=== PATIENT | male | born 1995 | race Caucasian/White ===

== ENCOUNTER 2018-09-21 12:54 | Emergency (ER) | payer MEDICAID, OTHER ==
[~2018-09-21] VITALS: Ht 180.3 cm; Wt 86.2 kg
--- NOTE | 2018-09-21 12:56 | ED General ---
General Stated Complaint: LT EAR FOREIGN OBJECT History of Present Illness Date Seen by Provider: Sep 21, 2018 Time Seen by Provider: 12:55 Initial Comments Patient has fishhook to L ear after he was going through his truck and is hanging in the visor of his truck and jumped up and it cut through the upper posterior ear. It is through and through. tdap utd. Allergies and Home Medications Patient Home Medication List Home Medication List Reviewed: Yes Review of Systems Review of Systems Constitutional: no symptoms reported Skin: other (foreign body) Physical Exam Vital Signs Vital Signs - First Documented 09/21/18 13:00 Temp 98.0 Pulse 84 Resp 18 B/P (MAP) 113/72 (86) Pulse Ox 98 O2 Delivery Room Air Capillary Refill : Height, Weight, BMI Height: '" Weight: lbs. oz. kg; BMI Method: General Appearance: No Apparent Distress, WD/WN Skin: Other (L upper posterior ear with fish hook that goes through and through. Large lure that is causing his ear to be pulled on. Is through the scapha, under the helix.) Procedures/Interventions I&D : Progress We cleansed the ear with chlorhexidine and I attempted to cut the fishhook proximal to the valorie with ring cutters and then wire cutters with no success as well as having to pull on the ear and I had assistance trying to hold the ear in place. Unfortunately he did not tolerate it so I then recommended that we anesthetize his ear using an auricular block. He stated that he did not want needles in his skull and I tried explaining to him that I am not putting a needle in skull rather just putting a needle slightly underneath the skin to anesthetize the nerves go to his ear. He again reiterates that he would absolutely never let me put a needle into his head as he was going into his skull and would cause permanent damage. Despite my best efforts at trying to reassure him that this is routine and will not cause permanent damage he would not allow me to anesthetize his ear. I told him the only other option would be to pull the fishhook out backwards which would not be recommended as it would cause further damage to the ear. It is the only other option I have available to me as I cannot get the proximal end of the fishhook cut. Patient refused this as he said he could do that at home and does not want done here. I advised against this and he verbalized understanding. Progress/Results/Core Measures Suspected Sepsis SIRS Temperature: Pulse: Respiratory Rate: Blood Pressure / Mean: Results/Orders Vital Signs/I&O 09/21/18 13:00 Temp 98.0 Pulse 84 Resp 18 B/P (MAP) 113/72 (86) Pulse Ox 98 O2 Delivery Room Air Capillary Refill : Progress Note : Progress Note As above patient is refusing to be anesthetized with further attempts to remove the fishhook as he cannot tolerate the procedure without being anesthetized. Patient said that he would try and attempt at home with his bulk cutters and his fiance has experienced a pulling out prior fishhooks in his lip. Again advised against this as it will make a cause further damage and further complications and he verbalized understanding accept the risks of further damage and infection to his ear. I told him he is otherwise welcome back here if he wants me to try again later after being anesthetized. Patient signed out AGAINST MEDICAL ADVICE. Departure Impression Primary Impression: Foreign body of skin of ear region Qualified Codes: S00.452A - Superficial foreign body of left ear, initial encounter Disposition: HOME, SELF-CARE Condition: Against Medical Advice PHYLLIS COOK DO Sep 21, 2018 12:56
[2018-09-21 13:00] VITALS: BP 113/72
--- NOTE | 2018-09-21 13:30 | NUR ---
Pt left AMA with refusal of further treatment options to remove fish hook valorie from left upper ear cartiledge. Pt has signed out refusal of Tx and AMA. Instructed to return to ED prn any further assistance needed or return to try again to assist to remove. Pt will have his , a NETWORK OPERATIONS MANAGER, to assist him when she gets off work. Pt states he must leave now to clean his truck out for its repossession.
[2018-09-21] MEDS ORDERED: CEPH500T PO (16:12)
--- OUTSIDE RECORDS SUMMARY | 2018-09-22 01:26 | XMS REPORT ---
Demographics Preferred Language Unknown Marital Status Unknown Confucianism Affiliation Unknown Race Unknown Ethnic Group Unknown Author Author [facility] Organization [facility] Address Unknown Phone Unavailable Allergies No Known Allergy Information Encounters Program Name Primary Diagnosis Admission Date/Time Discharge Date/Time Fortis Documents FriDec 06 00:00:00 EDT 2005Oct 21 23:59:00 EDT 2016 Immunizations No Known Immunizations Lab Results No Known Laboratory Results Medical Equipment No Known Medical Equipment Medications No Known Medication Information Treatment Plan No Treatment Plan Information Problems No Known Problems Procedures No Known Procedures Social History Social History Observation Description Date Sex Male Kia Jan 13 08:00:00 EDT 1996 Vital Signs No Known Vitals
--- OUTSIDE RECORDS SUMMARY | 2018-09-22 01:26 | XMS REPORT | Continuity of Care Document ---
Author Organization Unknown Address Unknown Allergies Active Description Code Type Severity Reaction Onset Reported/Identified Relationship to Patient Clinical Status Yes NO NAME AVAILABLE 52698 DRUG N/A N/A Medications There is no data. Problems There is no data. Procedures There is no data. Results Radiology Report from NAKUL on 06/30/2012 17:04:00 DIAGNOSTIC IMAGING REPORT [facility] - [address], [place] [address] PHONE #: [phone] FAX #: [phone] Name: ROMERO GUTHRIE Loc: [facility]RO Radiology No: : 1995 Age: 17 Sex: M Status: REG REF Unit No: [id number] Phys: Remy Post MD Acct: [id number] Reason For Exam: TRAUMA.PAIN RIGHT HAND Exam Date: 06/30/2012 EXAMS: CPT CODE: [id number] HAND RIGHT 1-2 VIEWS [id number] TIME OF STUDY: 06/30/2012 3:09 PM REASON FOR EXAM: Trauma, right hand pain COMPARISON: None FINDINGS: 2 views of the right hand were obtained. There is no evidence of acute fracture, dislocation, or other acute bony abnormality. There is no significant soft tissue swelling or large joint effusion. No abnormal soft tissue calcifications are present. No subcutaneous emphysema is identified. No unexpected radiopaque foreign bodies are present. IMPRESSION: 1. No acute fracture or dislocation. I have personally reviewed these images and approved or corrected the resident physician's interpretation. at 7913 RESIDENT: ANTOLIN RAY DO Reported and signed by: REMY HORVATH MD CC: Remy Casiano MD Technologist: TANVI DIOP Transcribed Date/Time: 06/30/2012 (2658)Addiction Social Worker: [email or web address] Printed Date/Time: 06/30/2012 (5501) BATCH NO: N/A PAGE 1 Signed Report Encounters ACCT No. Visit Date/Time Discharge Status Pt. Type Provider Facility Loc./Unit Complaint [id number] 01/02/2017 13:48:00 [facility] Unknown [id number] 04/16/2018 16:40:00 04/16/2018 23:59:59 [facility] [id number] 06/30/2012 17:04:00 06/30/2012 23:59:59 CLS Outpatient
== END 2018-09-21 13:30 | disposition home or self-care (01) ==
LOC: ER FS 12:56
DX: S00.452A Superficial foreign body of left ear, initial encounter (principal); W45.8XXA Other foreign body or object entering through skin, initial encounter; Y93.39 Activity, other involving climbing, rappelling and jumping off
CPT/HCPCS: 99282

== ENCOUNTER 2018-09-21 15:15 | Emergency (ER) | payer MEDICAID ==
[~2018-09-21] VITALS: Ht 180.3 cm; Wt 88.5 kg
[2018-09-21] MEDS ORDERED: LIDOCAINE 1% INJ 20 ML 20 ML VIAL INJ ONE (15:45)
[2018-09-21] MEDS ORDERED: CEPH500T PO (16:12)
--- NOTE | 2018-09-21 16:12 | ED Integumentary General ---
General Chief Complaint: Foreign Body Stated Complaint: FISHING LURE IN EAR Nursing Triage Note: PATIENT STATES THAT HE GOT A FISHING LURE CAUGHT IN HIS EAR WHILE CLEANING OUT HIS TRUCK. History of Present Illness Date Seen by Provider: Sep 21, 2018 Time Seen by Provider: 15:20 Initial Comments 23-year-old male presents with a fishing lure in his left ear, auricle. He had a tetanus vaccine 1 year ago. The lure was in his truck interior and he was cleaning the truck. He was evaluated at [facility] and told they would have to excise part of his ear, so he left and came here. Timing/Duration: just prior to arrival Location: face (left ear) Possible Cause: no cause identified Associated Symptoms: denies symptoms Allergies and Home Medications Allergies Coded Allergies: No Known Drug Allergies (Unverified , 09/21/18) Home Medications Cephalexin 500 Mg Tablet, 500 MG PO TID Prescribed by: JACOB DAN on 09/21/18 1612 Patient Home Medication List Home Medication List Reviewed: Yes Review of Systems Review of Systems Constitutional: no symptoms reported, see HPI Skin: see HPI, other (foreign body, left ear.) Past Holxdgz-Mghukt-Ryjzae Hx Past Med/Social Hx: Reviewed Nursing Past Med/Soc Hx Patient Social History Alcohol Use: Occasionally Uses Recreational Drug Use: No Smoking Status: Current Everyday Smoker Type Used: Cigarettes 2nd Hand Smoke Exposure: No Recent Foreign Travel: No Contact w/Someone Who Travel: No Recent Infectious Disease Expo: No Recent Hopitalizations: No Immunizations Up To Date Tetanus Booster (TDap): Less than 5yrs Seasonal Allergies Seasonal Allergies: No Past Medical History Surgeries: Yes (Strabismus surgery) Eye Surgery Respiratory: No Cardiac: No Neurological: No Genitourinary: No Gastrointestinal: No Musculoskeletal: No Endocrine: No HEENT: No Cancer: No Psychosocial: Yes Bipolar Blood Disorders: No Physical Exam Vital Signs Vital Signs - First Documented 09/21/18 15:18 Temp 98.2 Pulse 85 Resp 20 B/P (MAP) 118/73 (88) Pulse Ox 98 Capillary Refill : Less Than 3 Seconds General Appearance: WD/WN, no apparent distress HEENT: PERRL/EOMI, normal ENT inspection, other (hook noted in the left auricle, no active bleeding.) Neck: non-tender, full range of motion, supple, normal inspection Cardiovascular: normal peripheral pulses, regular rate, rhythm Respiratory: chest non-tender, lungs clear, normal breath sounds Neurologic/Psychiatric: no motor/sensory deficits, alert, normal mood/affect, oriented x 3 Skin: normal color, warm/dry Procedures/Interventions I&D : I & D Procedure: betadine prep Progress skin prepped with betadine, 1.5 ml of 1% lidocaine for local anesthesia. Hook advanced through skin, then cut past the valorie and hook easily withdrawn from ear. The wound was irrigated with 100 ML's of sterile saline. Triple antibiotic ointment and Band-Aid applied. Patient tolerated procedure well. Progress/Results/Core Measures Results/Orders My Orders Orders - JACOB DAN Lidocaine 1% Inj 20 Ml (Xylocaine 1% Inj (09/21/18 15:45) Medications Given in ED Current Medications Medications Dose Ordered Sig/Aurora Route Start Time Stop Time Status Last Admin Dose Admin Lidocaine HCl 20 ml ONCE ONCE INJ 09/21/18 15:45 09/21/18 15:46 DC 09/21/18 16:00 20 ML Vital Signs/I&O 09/21/18 09/21/18 15:18 16:16 Temp 98.2 98.2 Pulse 85 85 Resp 20 20 B/P (MAP) 118/73 (88) 118/73 (88) Pulse Ox 98 98 Blood Pressure Mean: 88 Departure Impression Primary Impression: Fishing hook foreign body Qualified Codes: W45.8XXA - Other foreign body or object entering through skin, initial encounter Disposition: 01 HOME, SELF-CARE Condition: Improved Departure-Patient Inst. Decision time for Depature: 16:10 Referrals: TOMAS JAMES MD (PCP/Family) Primary Care Physician Patient Instructions: Foreign Body in Skin (DC) Add. Discharge Instructions: Clean left ear with peroxide 3 times a day and apply triple antibiotic ointment. Take antibiotic as prescribed. You may use Tylenol 650 mg alternating with ibuprofen 600 mg every 4 hours for pain. Follow-up with your primary care provider if symptoms worsen. Return to emergency department for increased pain, swelling, redness, fever greater than 101 not relieved by Tylenol and ibuprofen or new concerns. All discharge instructions reviewed with patient and/or family. Voiced understanding. Scripts Cephalexin (Cephalexin) 500 Mg Tablet 500 MG PO TID, #15 TAB 0 Refills Prov: JACOB DAN 09/21/18 JACOB DAN Sep 21, 2018 16:12
[2018-09-21 16:16] VITALS: BP 118/73
--- OUTSIDE RECORDS SUMMARY | 2018-09-22 02:00 | XMS REPORT | Continuity of Care Document ---
Author Organization Unknown Address Unknown Allergies Active Description Code Type Severity Reaction Onset Reported/Identified Relationship to Patient Clinical Status Yes NO NAME AVAILABLE 52131 DRUG N/A N/A Medications There is no data. Problems There is no data. Procedures There is no data. Results Radiology Report from NAKUL on 06/30/2012 17:04:00 DIAGNOSTIC IMAGING REPORT [facility] - [address], [place] [address] PHONE #: [phone] FAX #: [phone] Name: ROMERO GUTHRIE Loc: PEDRO Radiology No: : 1995 Age: 17 Sex: M Status: REG REF Unit No: [id number] Phys: Remy Post MD Acct: [id number] Reason For Exam: TRAUMA.PAIN RIGHT HAND Exam Date: 06/30/2012 EXAMS: CPT CODE: [id number] HAND RIGHT 1-2 VIEWS [id number] TIME OF STUDY: 06/30/2012 3:09 PM REASON [...] or corrected the resident physician's interpretation. at 5802 RESIDENT: ANTOLIN RAY DO Reported and signed by: REMY HORVATH MD CC: Remy Casiano MD Technologist: TANVI DIOP Transcribed Date/Time: 06/30/2012 (3448)Crystal Finisher: PZARCADM Printed Date/Time: 06/30/2012 (1604) BATCH NO: N/A PAGE 1 Signed Report Encounters ACCT No. Visit Date/Time Discharge Status Pt. Type Provider Facility Loc./Unit Complaint [id number] 01/02/2017 13:48:00 ACT Unknown [id number] 04/16/2018 16:40:00 04/16/2018 23:59:59 [facility] [id number] 06/30/2012 17:04:00 06/30/2012 23:59:59 CLS Outpatient
== END 2018-09-21 16:17 | disposition home or self-care (01) ==
LOC: EDUNIT# 15:15 → ER 15:16
DX: S00.452A Superficial foreign body of left ear, initial encounter (principal); F31.9 Bipolar disorder, unspecified; F17.210 Nicotine dependence, cigarettes, uncomplicated; W45.8XXA Other foreign body or object entering through skin, initial encounter
CPT/HCPCS: 99282

== ENCOUNTER 2018-11-24 21:12 | Emergency (ER) | payer SELFPAY ==
[~2018-11-24] VITALS: Ht 180.3 cm; Wt 81.6 kg
[~2018-11-24 21:12] MED LIST: CEPH500T PO
--- NOTE | 2018-11-24 22:38 | ED Cough/URI ---
General Chief Complaint: Cough/Cold/Flu Symptoms Stated Complaint: TROAT PAIN, HEAD PRESSURE, CONGESTED Sepsis Screen: No Definite Risk Source: patient History of Present Illness Date Seen by Provider: Nov 24, 2018 Time Seen by Provider: 22:38 Initial Comments 23-year-old male presenting with complaints of a scratchy throat, congestion and sinus pressure, possible bronchitis. He is a smoker and does have seasonal allergies. 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 He also has a child that is sick with bronchitis and wuzmye-xm-[id number] that is sick with bronchitis. He was concerned that his coughing might get worse and he is very sick with bronchitis and can't work it will affect his employment. He denies any fever or chills. He does have some muscle pain in his back that feels that it is from kitchen 80 pound Carp this weekend and just made worse from coughing. He is not bringing anything up when he coughs Allergies and Home Medications Allergies Coded Allergies: No Known Drug Allergies (Unverified , 09/21/18) Home Medications Azithromycin 250 Mg Tablet, 250 MG PO UD TAKE 2 TABLETS ON DAY ONE THEN TAKE 1 TABLET DAILY FOR FOUR MORE DAYS Prescribed by: KELECHI KOWALSKI on 11/24/18 2303 Cephalexin 500 Mg Tablet, 500 MG PO TID Prescribed by: JACOB DAN on 09/21/18 1612 Patient Home Medication List Home Medication List Reviewed: Yes Review of Systems Review of Systems Constitutional: chills; No fever EENTM: hoarseness, nose congestion, throat pain; No ear discharge, No ear pain, No epistaxis Respiratory: cough; No hemoptysis; phlegm Cardiovascular: chest pain (from coughing) Gastrointestinal: no symptoms reported Genitourinary: no symptoms reported Musculoskeletal: back pain (since catching an 80 pound carp this weekend but worse with coughing) Skin: no symptoms reported Psychiatric/Neurological: Anxiety Past Yyvgsbs-Jthuti-Ofgfhi Hx Patient Social History Alcohol Use: Denies Use Recreational Drug Use: No Smoking Status: Current Everyday Smoker Type Used: Cigarettes 2nd Hand Smoke Exposure: No Recent Foreign Travel: No Contact w/Someone Who Travel: No Recent Infectious Disease Expo: No Recent Hopitalizations: No Physical Abuse: No Sexual Abuse: No Mistreated: No Immunizations Up To Date Tetanus Booster (TDap): Less than 5yrs Seasonal Allergies Seasonal Allergies: No Past Medical History Surgeries: Yes (Strabismus surgery) Eye Surgery Respiratory: No Cardiac: No Neurological: No Genitourinary: No Gastrointestinal: No Musculoskeletal: No Endocrine: No HEENT: No Cancer: No Psychosocial: Yes Bipolar Blood Disorders: No Physical Exam Vital Signs - First Documented 11/24/18 21:32 Temp 97.6 Pulse 86 Resp 18 B/P (MAP) 134/63 (86) Pulse Ox 94 O2 Delivery Room Air Capillary Refill : Less Than 3 Seconds Height: 5'11.00" Weight: 180lbs. 0oz. 81.056298wk; BMI Method:Stated General Appearance: WD/WN, no apparent distress HEENT: PERRL/EOMI, normal ENT inspection, TMs normal, pharynx normal, pharyn geal erythema; No tonsillar exudate; other (TMs are clear bilaterally but he has some clear effusion present bilaterally consistent with possible allergic rhinitis) Neck: non-tender, full range of motion, supple, normal inspection Respiratory: lungs clear, normal breath sounds, no respiratory distress, no accessory muscle use, other (tender to palpation on left lateral ribs) Cardiovascular: normal peripheral pulses, regular rate, rhythm Gastrointestinal: normal bowel sounds, non tender, soft, no pulsatile mass Extremities: normal range of motion, non-tender, normal inspection, normal capillary refill Neurologic/Psychiatric: alert, normal mood/affect, oriented x 3 Skin: normal color, warm/dry Progress/Results/Core Measures Suspected Sepsis Recent Fever Within 48 Hours: No Infection Criteria Present: None New/Unexplained Altered Menta: No Sepsis Screen: No Definite Risk SIRS Temperature:97.6 Pulse: 86 Respiratory Rate: 18 Blood Pressure 134 /63 Mean: 86 Results/Orders Vital Signs/I&O 11/24/18 11/24/18 21:32 23:10 Temp 97.6 Pulse 86 70 Resp 18 18 B/P (MAP) 134/63 (86) 129/54 (79) Pulse Ox 94 97 O2 Delivery Room Air Room Air Capillary Refill : Less Than 3 Seconds Blood Pressure Mean: 86 Progress Note : Progress Note With his oxygen saturation doing well and he does not have a fever here in the ED will treat for possible atypical infection since he is a smoker. will p rescribe z pack but if he improves with just mucinex and claritin alone he would not have to fill the z pack. However if he worsens, runs fever over 101 F, or has increased sputum production he could start the z pack without having to come be seen again. Encouraged to stop smoking as well Departure Impression Primary Impression: Allergic bronchitis with acute exacerbation Additional Impression: Tobacco abuse Disposition: 01 HOME, SELF-CARE Condition: Stable Departure-Patient Inst. Decision time for Depature: 23:00 Referrals: TOMAS JAMES MD (PCP/Family) Primary Care Physician Patient Instructions: Seasonal Allergies (DC), Acute Bronchitis, Adult (DC), Quitting Smoking Add. Discharge Instructions: Stay well hydrated and get plenty of rest Follow up with clinic if having continued problems or more concerns Take Mucinex over the counter to help loosen up cough and congestion Take Claritin or Loratidine over the counter to help with your seasonal allergies If you have worsening symptoms or coughing up more congestion you could start taking the Z-pack (Azithromycin) to treat for atypical lung infection since you are a smoker. Quitting smoking would help with your breathing and coughing All discharge instructions reviewed with patient and/or family. Voiced understanding. Scripts Azithromycin (Azithromycin) 250 Mg Tablet 250 MG PO UD for 5 Days, #6 TAB 0 Refills TAKE 2 TABLETS ON DAY ONE THEN TAKE 1 TABLET DAILY FOR FOUR MORE DAYS Prov: KELECHI KOWALSKI MD 11/24/18 KELECHI KOWALSKI MD Nov 24, 2018 22:38
[2018-11-24] MEDS ORDERED: AZIT250T12 PO (23:03)
[2018-11-24 23:10] VITALS: BP 129/54
== END 2018-11-24 23:11 | disposition home or self-care (01) ==
LOC: EDUNIT# 21:12 → ER FS 21:13
DX: J45.901 Unspecified asthma with (acute) exacerbation (principal); F31.9 Bipolar disorder, unspecified; F17.210 Nicotine dependence, cigarettes, uncomplicated
CPT/HCPCS: 99282

== ENCOUNTER 2019-01-14 19:30 | Emergency (ER) | payer MEDICAID, OTHER ==
[~2019-01-14] VITALS: Ht 180 cm; Wt 80.4 kg
[~2019-01-14 19:30] MED LIST changes: +AZIT250T12 PO
[2019-01-14 20:39] VITALS: BP 130/73
--- NOTE | 2019-01-14 20:41 | ED Upper Extremity ---
General Chief Complaint: Upper Extremity Stated Complaint: LT HAND INJ Nursing Triage Note: PT STATES HE WAS WORKING ON HIS MOWER AND THE BLADE HIT HIS LEFT HAND. PT COMPLAINING OF LEFT 4TH FINGER PAIN Nursing Sepsis Screen: No Definite Risk Source: patient Exam Limitations: no limitations History of Present Illness Date Seen by Provider: Jan 14, 2019 Time Seen by Provider: 20:00 Initial Comments Patient is a right-handed male presents with injury to distal left index finger. Patient smashed his left index finger under a lawnmower earlier today while at work. On exam, there is no deformity, buttock contusion of the distal fingertip and subungual hematoma involving two thirds of the nail are present. Patient has full range of motion. No other injury or complaint. Patient is right-handed. Onset: just prior to arrival Pain/Injury Location: left 4th finger Method of Injury: direct blow Allergies and Home Medications Allergies Coded Allergies: No Known Drug Allergies (Unverified , 09/21/18) Home Medications Azithromycin 250 Mg Tablet, 250 MG PO UD TAKE 2 TABLETS ON DAY ONE THEN TAKE 1 TABLET DAILY FOR FOUR MORE DAYS Prescribed by: KELECHI KOWALSKI on 11/24/18 2303 Cephalexin 500 Mg Tablet, 500 MG PO TID Prescribed by: JACOB DAN on 09/21/18 1612 Patient Home Medication List Home Medication List Reviewed: Yes Review of Systems Constitutional: no symptoms reported EENTM: no symptoms reported Respiratory: no symptoms reported Cardiovascular: no symptoms reported Genitourinary: no symptoms reported Musculoskeletal: other Past Tjjeewn-Mtvqhl-Eovhiq Hx Past Med/Social Hx: Reviewed Nursing Past Med/Soc Hx Patient Social History Alcohol Use: Denies Use Recreational Drug Use: No Type Used: Cigarettes 2nd Hand Smoke Exposure: No Recent Foreign Travel: No Contact w/Someone Who Travel: No Recent Infectious Disease Expo: No Recent Hopitalizations: No Physical Abuse: No Sexual Abuse: No Mistreated: No Immunizations Up To Date Tetanus Booster (TDap): Less than 5yrs Seasonal Allergies Seasonal Allergies: No Past Medical History Surgeries: Yes (Strabismus surgery) Eye Surgery Respiratory: No Cardiac: No Neurological: No Genitourinary: No Gastrointestinal: No Musculoskeletal: No Endocrine: No HEENT: No Cancer: No Psychosocial: Yes Bipolar Blood Disorders: No Physical Exam Vital Signs Vital Signs - First Documented 01/14/19 19:45 Temp 36.4 Pulse 87 Resp 16 B/P (MAP) 130/73 (92) Pulse Ox 99 O2 Delivery Room Air Capillary Refill : Less Than 3 Seconds Height, Weight, BMI Height: 5'11.00" Weight: 180lbs. 0oz. 81.901318kb; 24.00 BMI Method:Stated General Appearance: mild distress Hand: Left, nail injury, soft tissue tenderness (small hematoma to distal left index finger with associated subungual UA, involving two thirds of nail surface. Nail is intact. No joint injury, deformity. Range of motion intact.) Progress/Results/Core Measures Results/Orders My Orders Orders - RACHEL BHATIA DO Finger(S) (01/14/19 20:18) Vital Signs/I&O 01/14/19 19:45 Temp 36.4 Pulse 87 Resp 16 B/P (MAP) 130/73 (92) Pulse Ox 99 O2 Delivery Room Air Blood Pressure Mean: 92 Departure Communication (Admissions) Finger x-ray reviewed. No obvious displaced fracture. Patient offered trephinati on of nail in the emergency department which she declined. Recommendations are supportive care with PCP follow-up as needed. Impression Primary Impression: Subungual hematoma of finger of left hand Disposition: 01 HOME, SELF-CARE Condition: Improved Departure-Patient Inst. Add. Discharge Instructions: You were evaluated in the emergency department for an injury to left index finger. X-ray was performed does not show evidence of fracture. There is a contusion to the tip of the index finger with hematoma of the nail bed. Take ibuprofen for pain and follow-up with your PCP for further evaluation and treatment if you change your mind regarding treatment of nail bed injury. All discharge instructions reviewed with patient and/or family. Voiced understanding. RACHEL BHATIA DO Jan 14, 2019 20:41
--- NOTE | 2019-01-14 20:43 | Diagnostic Imaging Report ---
Clinical indication: Patient states he was working on his mower and the blade hit his left hand. Patient complains of left 4th finger pain. Exam: X-ray of the left 4th finger, 3 views. Comparison: None. Findings and impression: 1: There is mild soft tissue swelling adjacent to the 4th distal phalanx. There is no subcutaneous gas or radiodense foreign object. 2: There is no fracture or dislocation. The remainder of the left hand is unremarkable. Dictated by: Dictated on workstation # [id number]
== END 2019-01-14 20:39 | disposition home or self-care (01) ==
LOC: EDUNIT# 19:30 → ER FS 19:31
DX: S60.022A Contusion of left index finger without damage to nail, initial encounter (principal); F31.9 Bipolar disorder, unspecified; W28.XXXA Contact with powered lawn mower, initial encounter; Y92.59 Other trade areas as the place of occurrence of the external cause
CPT/HCPCS: 73140

== ENCOUNTER 2019-01-15 11:06 | Emergency (ER) | payer MEDICAID, OTHER ==
[~2019-01-15] VITALS: Ht 180 cm; Wt 80.8 kg
[2019-01-15 11:44] VITALS: BP 135/76
--- NOTE | 2019-01-15 11:46 | ED Upper Extremity ---
General Chief Complaint: Upper Extremity Stated Complaint: LT FINGER PAIN Source: patient Exam Limitations: no limitations History of Present Illness Date Seen by Provider: Jan 15, 2019 Time Seen by Provider: 11:30 Initial Comments Patient is a 24-year-old right-handed male who was evaluated emergency department last night and diagnosed with a subungual hematoma of his left index finger. Patient declined trephination procedure last evening but has since reconsidered and is requesting treatment for this condition. No other symptoms or complaints Onset: just prior to arrival Pain/Injury Location: left 2nd finger Method of Injury: direct blow Allergies and Home Medications Allergies Coded Allergies: No Known Drug Allergies (Unverified , 09/21/18) Home Medications Azithromycin 250 Mg Tablet, 250 MG PO UD TAKE 2 TABLETS ON DAY ONE THEN TAKE 1 TABLET DAILY FOR FOUR MORE DAYS Prescribed by: KELECHI KOWALSKI on 11/24/182302 Cephalexin 500 Mg Tablet, 500 MG PO TID Prescribed by: JACOB DAN on 09/21/18 1612 Patient Home Medication List Home Medication List Reviewed: Yes Review of Systems Constitutional: no symptoms reported Past Lffspqb-Jiutdx-Vrbzlf Hx Past Med/Social Hx: Reviewed Nursing Past Med/Soc Hx Patient Social History Type Used: Cigarettes 2nd Hand Smoke Exposure: No Recent Foreign Travel: No Recent Hopitalizations: No Immunizations Up To Date Tetanus Booster (TDap): Less than 5yrs Seasonal Allergies Seasonal Allergies: No Past Medical History Surgeries: Yes (Strabismus surgery) Eye Surgery Respiratory: No Cardiac: No Neurological: No Genitourinary: No Gastrointestinal: No Musculoskeletal: No Endocrine: No HEENT: No Cancer: No Psychosocial: Yes Bipolar Blood Disorders: No Physical Exam Vital Signs Capillary Refill : Height, Weight, BMI Height: 5'11.00" Weight: 180lbs. 0oz. 81.322759hx; 24.00 BMI Method:Stated General Appearance: no apparent distress Hand: Left (subungual hematoma of left index finger.) Procedures/Interventions Nail Trepanation : Method of Drainage: nail cauterized Sterile Dressing Applied: Yes Finger Splint: No Progress To holes were made with hand-held battery powered cautery device Patient tolerated the procedure well. Departure Communication (Admissions) Nail trephinated with release of symptoms. Impression Primary Impression: Subungual hematoma of finger of left hand Disposition: HOME, SELF-CARE Condition: Improved Departure-Patient Inst. Referrals: TOMAS JAMES MD (PCP) Primary Care Physician Add. Discharge Instructions: Keep wound clean and covered. Return to the ED if signs of infection. All discharge instructions reviewed with patient and/or family. Voiced understanding. RACHEL BHATIA DO Jan 15, 2019 11:46
== END 2019-01-15 11:44 | disposition home or self-care (01) ==
LOC: EDUNIT# 11:06 → ER FS 11:07
DX: S60.022A Contusion of left index finger without damage to nail, initial encounter (principal); F31.9 Bipolar disorder, unspecified; W22.8XXA Striking against or struck by other objects, initial encounter

== ENCOUNTER 2019-01-25 03:49 | Emergency (ER) | payer MEDICAID ==
[~2019-01-25] VITALS: Ht 180.3 cm; Wt 86.2 kg
--- NOTE | 2019-01-25 04:13 | ED Integumentary General ---
General Chief Complaint: Allergic Reaction Stated Complaint: RASH Source: patient Exam Limitations: no limitations History of Present Illness Date Seen by Provider: Jan 25, 2019 Time Seen by Provider: 03:51 Initial Comments Patient presents to ER by private conveyance with chief complaint last couple weeks having red itchy bumps all over his lower extremities and waist line and trunk. 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 He has no significant medical history fevers or chills. Allergies and Home Medications Allergies Coded Allergies: No Known Drug Allergies (Unverified , 09/21/18) Home Medications Azithromycin 250 Mg Tablet, 250 MG PO UD TAKE 2 TABLETS ON DAY ONE THEN TAKE 1 TABLET DAILY FOR FOUR MORE DAYS Prescribed by: KELECHI KOWALSKI on 11/24/183 Cephalexin 500 Mg Tablet, 500 MG PO TID Prescribed by: JACOB DAN on 09/21/18 1612 Patient Home Medication List Home Medication List Reviewed: Yes Review of Systems Review of Systems Constitutional: No chills, No diaphoresis EENTM: No ear discharge, No ear pain Respiratory: No cough, No short of breath Cardiovascular: No chest pain, No edema Gastrointestinal: No abdominal pain, No nausea Past Zakmycq-Xynzch-Izpcny Hx Patient Social History Alcohol Use: Denies Use Recreational Drug Use: No Smoking Status: Current Everyday Smoker Type Used: Cigarettes 2nd Hand Smoke Exposure: No Recent Foreign Travel: No Contact w/Someone Who Travel: No Recent Hopitalizations: No Immunizations Up To Date Tetanus Booster (TDap): Less than 5yrs Seasonal Allergies Seasonal Allergies: No Past Medical History Surgeries: Yes (Strabismus surgery) Eye Surgery Respiratory: No Cardiac: No Neurological: No Genitourinary: No Gastrointestinal: No Musculoskeletal: No Endocrine: No HEENT: No Cancer: No Psychosocial: Yes Bipolar Integumentary: No Blood Disorders: No Physical Exam Vital Signs Capillary Refill : General Appearance: WD/WN, mild distress HEENT: PERRL/EOMI, pharynx normal Cardiovascular: normal peripheral pulses, regular rate, rhythm Respiratory: no respiratory distress, no accessory muscle use Skin: rash (erythematous, excoriated rash on his ankles and lower extremities bilaterally, trunk and some on the upper extremities. None on his face. None on the palms or soles of his feet. Consistent with arthropod bites.) Progress/Results/Core Measures Progress Progress Note : Time: 04:10 Progress Note Suspect strongly that he has bed bugs. We have discussed appropriate measures to control these and recommended he employed an shrimp picker. Departure Impression Primary Impression: Bedbug bite Qualified Codes: W57.XXXA - Bitten or stung by nonvenomous insect and other nonvenomous arthropods, initial encounter Disposition: HOME, SELF-CARE Condition: Stable Departure-Patient Inst. Decision time for Depature: 04:10 Referrals: NO,LOCAL PHYSICIAN (PCP/Family) Primary Care Physician Patient Instructions: Bedbugs Add. Discharge Instructions: Keep the skin clean with regular soap and water. You can use lotion or even hydrocortisone cream on local areas if they become intensely itchy. For the itching you can use Claritin/loratadine 10 mg daily or Zyrtec/cetirizine 10 mg daily. For breakthrough itching you can use 1-2 tablets of Benadryl every 6 hours as needed. Benadryl will cause drowsiness. Discuss with your landlord obtaining an shrimp picker. All discharge instructions reviewed with patient and/or family. Voiced understanding. CARLOS GALLO Jan 25, 2019 04:13 POS
[2019-01-25 04:18] VITALS: BP 141/88
== END 2019-01-25 04:18 | disposition home or self-care (01) ==
LOC: EDUNIT# 03:49 → ER FS 03:51
DX: S90.561A Insect bite (nonvenomous), right ankle, initial encounter (principal); S90.562A Insect bite (nonvenomous), left ankle, initial encounter; S80.861A Insect bite (nonvenomous), right lower leg, initial encounter; S80.862A Insect bite (nonvenomous), left lower leg, initial encounter; S40.861A Insect bite (nonvenomous) of right upper arm, initial encounter; S40.862A Insect bite (nonvenomous) of left upper arm, initial encounter; T14.8XXA Other injury of unspecified body region, initial encounter; F31.9 Bipolar disorder, unspecified; F17.210 Nicotine dependence, cigarettes, uncomplicated; W57.XXXA Bitten or stung by nonvenomous insect and other nonvenomous arthropods, initial encounter
CPT/HCPCS: 99282

== ENCOUNTER 2019-04-21 21:08 | Emergency (ER) | payer MEDICAID ==
[~2019-04-21] VITALS: Ht 179 cm; Wt 81.3 kg
[2019-04-21 21:10] VITALS: BP 117/59
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
[2019-04-21] MEDS ORDERED: RX-NEO/POLYB/HC OTIC (CORTISPORIN) SUSP 10 ML BTL OT STA (21:26)
== END 2019-04-21 21:38 | disposition home or self-care (01) ==
LOC: EDUNIT# 21:08 → ER FS 21:09
DX: H66.92 Otitis media, unspecified, left ear (principal); H60.92 Unspecified otitis externa, left ear
CPT/HCPCS: 99283

== ENCOUNTER 2019-08-27 19:43 | Emergency (ER) | payer MEDICAID ==
[~2019-08-27] VITALS: Ht 155 cm; Wt 86.0 kg
[2019-08-27 20:00] VITALS: BP 119/62
--- NOTE | 2019-08-27 20:06 | ED Neck-Back Pain/Injury ---
General Chief Complaint: Head/Cervical Problems Stated Complaint: NECK PAIN Source of Information: Patient History of Present Illness Date Seen by Provider: Aug 27, 2019 Time Seen by Provider: 20:04 Allergies and Home Medications Allergies Coded Allergies: No Known Drug Allergies (Unverified , 09/21/18) Home Medications Azithromycin 250 Mg Tablet, 250 MG PO UD TAKE 2 TABLETS ON DAY ONE THEN TAKE 1 TABLET DAILY FOR FOUR MORE DAYS Prescribed by: KELECHI KOWASLKI on 11/24/18 2303 Cephalexin 500 Mg Tablet, 500 MG PO TID Prescribed by: JACOB DAN on 09/21/18 1612 Patient Home Medication List Home Medication List Reviewed: Yes Review of Systems Constitutional: no symptoms reported; No fever, No malaise, No weakness EENTM: no symptoms reported Respiratory: No cough, No short of breath Cardiovascular: No chest pain, No palpitations Musculoskeletal: see HPI; No back pain, No joint pain; muscle pain, muscle stiffness, neck pain Skin: no symptoms reported Psychiatric/Neurological: Denies Headache, Denies Numbness, Denies Paresthesia, Denies Pre-Existing Deficit, Denies Tingling, Denies Weakness Past Xdelrph-Bjgizb-Aokyti Hx Past Med/Social Hx: Reviewed Nursing Past Med/Soc Hx Patient Social History Type Used: Cigarettes 2nd Hand Smoke Exposure: No Recent Foreign Travel: No Contact w/Someone Who Travel: No Recent Hopitalizations: No Physical Abuse: No Sexual Abuse: No Mistreated: No Fear: No Immunizations Up To Date Tetanus Booster (TDap): Less than 5yrs Seasonal Allergies Seasonal Allergies: No Past Medical History Surgeries: Yes (Strabismus surgery) Eye Surgery Respiratory: No Cardiac: No Neurological: No Genitourinary: No Gastrointestinal: No Musculoskeletal: No Endocrine: No HEENT: No Cancer: No Psychosocial: Yes Bipolar Integumentary: No Blood Disorders: No Physical Exam Vital Signs Vital Signs - First Documented 08/27/19 20:00 Temp 36.8 Pulse 77 Resp 18 B/P (MAP) 119/62 (81) Pulse Ox 98 O2 Delivery Room Air Capillary Refill : Height, Weight, BMI Height: 5'11.00" Weight: 180lbs. 0oz. 81.453628gv; 25.00 BMI Method:Stated General Appearance: No Apparent Distress, WD/WN HEENT: Normal ENT Inspection Neck: Limited Range of Motion (limited Rotation to left), Tender Lateral (left post-lateral Paraspinal ms to left trapez and left medial scapula ms); No Tender Midline Extremity: Normal Capillary Refill, Normal Range of Motion, Non Tender Neurologic/Psychiatric: Alert, Oriented x3, No Motor/Sensory Deficits, Normal Mood/Affect Skin: Normal Color, Warm/Dry Progress/Results/Core Measures Results/Orders Vital Signs/I&O 08/27/19 20:00 Temp 36.8 Pulse 77 Resp 18 B/P (MAP) 119/62 (81) Pulse Ox 98 O2 Delivery Room Air Departure Impression Primary Impression: Neck sprain Qualified Codes: S13.9XXA - Sprain of joints and ligaments of unspecified parts of neck, initial encounter Disposition: HOME, SELF-CARE Condition: Stable Departure-Patient Inst. Decision time for Depature: 20:05 Referrals: NO,LOCAL PHYSICIAN (PCP/Family) Primary Care Physician Patient Instructions: Cervical Muscle Strain (DC) JOSE ZABALA DO Aug 27, 2019 20:05
== END 2019-08-27 20:12 | disposition home or self-care (01) ==
LOC: EDUNIT# 19:43 → ER FS 19:44
DX: S13.9XXA Sprain of joints and ligaments of unspecified parts of neck, initial encounter (principal); X58.XXXA Exposure to other specified factors, initial encounter
CPT/HCPCS: 99283

== ENCOUNTER 2019-11-18 18:11 | Emergency (ER) | payer MEDICAID ==
[~2019-11-18] VITALS: Ht 180.3 cm; Wt 82.2 kg
[2019-11-18 18:19] VITALS: BP 121/58
[2019-11-18] MEDS ORDERED: LIDOCAINE/EPI 2% 1:100,00 (XYLOCAINE) 20 ML VIAL ONE (18:27)
[2019-11-18] MEDS ORDERED: LIDOCAINE/EPI 2% 1:100,00 (XYLOCAINE) 20 ML VIAL INJ ONE (18:30)
--- NOTE | 2019-11-18 18:35 | ED Integumentary General ---
General Stated Complaint: LURE IN RT THIGH Source: patient Exam Limitations: no limitations History of Present Illness Date Seen by Provider: Nov 18, 2019 Time Seen by Provider: 18:20 Initial Comments The patient is a pleasant 24-year-old male presents for evaluation of a fistula were being stuck in his left thigh through his jeans. He states he was fishing and it accidentally got stuck while casting. There are 2 3-pronged fish hooks on his luer and two of the prongs from one of the hooks are stuck in his leg. He is up-to-date with tetanus. He is alert and oriented 4, calm, and appears to be in no distress at this time. Timing/Duration: just prior to arrival Severity: moderate Location: extremities (left lateral thigh) Allergies and Home Medications Allergies Coded Allergies: No Known Drug Allergies (Unverified , 09/21/18) Home Medications Azithromycin 250 Mg Tablet, 250 MG PO UD TAKE 2 TABLETS ON DAY ONE THEN TAKE 1 TABLET DAILY FOR FOUR MORE DAYS Prescribed by: KELECHI KOWALSKI on 11/24/183 Cephalexin 500 Mg Tablet, 500 MG PO TID Prescribed by: JACOB DAN on 09/21/18 1612 Patient Home Medication List Home Medication List Reviewed: Yes Review of Systems Review of Systems Constitutional: no symptoms reported EENTM: no symptoms reported Respiratory: no symptoms reported Cardiovascular: no symptoms reported Gastrointestinal: no symptoms reported Genitourinary: no symptoms reported Musculoskeletal: no symptoms reported Skin: other (fish luer in left thigh) Psychiatric/Neurological: No Symptoms Reported Endocrine: No Symptoms Reported Hematologic/Lymphatic: No Symptoms Reported All Other Systems Reviewed Negative Unless Noted: Yes Past Dgwxmtx-Syxiox-Iczftc Hx Past Med/Social Hx: Reviewed Nursing Past Med/Soc Hx Patient Social History Type Used: Cigarettes 2nd Hand Smoke Exposure: No Recent Foreign Travel: No Contact w/Someone Who Travel: No Recent Hopitalizations: No Immunizations Up To Date Tetanus Booster (TDap): Less than 5yrs Seasonal Allergies Seasonal Allergies: No Past Medical History Surgeries: Yes (Strabismus surgery) Eye Surgery Respiratory: No Cardiac: No Neurological: No Genitourinary: No Gastrointestinal: No Musculoskeletal: No Endocrine: No HEENT: No Cancer: No Psychosocial: Yes Bipolar Integumentary: No Blood Disorders: No Physical Exam Vital Signs Vital Signs - First Documented 11/18/19 18:19 Temp 37.0 Pulse 90 Resp 18 B/P (MAP) 121/58 (79) Pulse Ox 98 O2 Delivery Room Air Capillary Refill : General Appearance: WD/WN, no apparent distress HEENT: PERRL/EOMI, pharynx normal Neck: non-tender, full range of motion Cardiovascular: regular rate, rhythm, no edema, no JVD Respiratory: lungs clear, normal breath sounds, no respiratory distress Extremities: other (fish luer with 2 hooks stuck in the left lateral thigh) Neurologic/Psychiatric: no motor/sensory deficits, alert, normal mood/affect, oriented x 3 Skin: normal color, warm/dry Procedures/Interventions I&D : Site: left lateral thigh foreign body (fish hook) Progress The 2 barbs of the fishhook were anesthetized with 2% lidocaine with epinephrine and they were backed out with pliers. The patient tolerated the procedure well. Minimal bleeding. Progress/Results/Core Measures Results/Orders My Orders Orders - FÉLIX COFFEY DO Lidocaine/Epi 2% 1:100,000 (Xylocaine/Ep (11/18/19 18:30) Lidocaine/Epi 2% 1:100,000 (Xylocaine/Ep (11/18/19 18:27) Medications Given in ED Current Medications Medications Dose Ordered Sig/[place] Route Start Time Stop Time Status Last Admin Dose Admin Lidocaine/ Epinephrine 20 ml ONCE ONCE INJ 11/18/19 18:30 11/18/19 18:31 DC 11/18/19 18:32 20 ML Vital Signs/I&O 11/18/19 18:19 Temp 37.0 Pulse 90 Resp 18 B/P (MAP) 121/58 (79) Pulse Ox 98 O2 Delivery Room Air Progress Progress Note : Progress Note @1901 - patient tolerated the removal this patient very well. Advised patient to follow up with his PCP in the next 2-3 days and return to the emergency Depa rtment immediately for new or worsening symptoms. Departure Impression Primary Impression: Fishing hook foreign body Disposition: HOME, SELF-CARE Condition: Stable Departure-Patient Inst. Decision time for Depature: 19:02 Referrals: TOMAS JAMES MD (PCP) Primary Care Physician JACQUELYN TURNER APRN (Family) Primary Care Physician Patient Instructions: Foreign Body in Skin Add. Discharge Instructions: Keep the wound clean and dry. Follow-up with your doctor in the next 1-2 days. Return to the emergency Department immediately for new or worsening symptoms. FÉLIX COFFEY DO Nov 18, 2019 18:35
--- NOTE | 2019-11-18 18:52 | NUR ---
Report was given to CARLOS Guillaume at this time. Care was transferred.
== END 2019-11-18 19:06 | disposition home or self-care (01) ==
LOC: EDUNIT# 18:11 → ER FS 18:13
DX: S70.352A Superficial foreign body, left thigh, initial encounter (principal); W45.8XXA Other foreign body or object entering through skin, initial encounter

== ENCOUNTER 2021-07-28 20:49 | Emergency (ER) | payer MEDICAID ==
[~2021-07-28] VITALS: Ht 180.3 cm; Wt 88.4 kg
[2021-07-28 20:52] VITALS: BP 131/94
[2021-07-28] MEDS ORDERED: LIDOCAINE 1% INJ 50 ML (XYLOCAINE) VIAL ONE (21:29)
[2021-07-28] MEDS ORDERED: LIDOCAINE 1% INJ 20 ML VIAL INJ ONE (21:30)
[2021-07-28] MEDS: HYDROcodone/APAP 5 MG/325 MG (LORTAB) TAB PO ONE ×2 (21:35→21:44)
[2021-07-28] MEDS: TETANUS,DIPTH,PERTUSS P/F (BOOSTRIX) 0.5 ML VIAL IM ONE ×2 (21:36→21:43)
[2021-07-28] MEDS ORDERED: LIDOCAINE 1% INJ 50 ML (XYLOCAINE) VIAL IJ ONE (21:45)
--- NOTE | 2021-07-28 21:54 | Diagnostic Imaging Report ---
CLINICAL INDICATION: Patient with foreign body in the right knee. Patient with screw with metal plate attached to the end. EXAM: X-ray of the right knee, 3 views. COMPARISON: None. FINDINGS AND IMPRESSION: 1: There is an "L" shaped metal bracket with screw seen overlying the lateral anterior aspect of the knee. The screw appears to be anterior to the patella in the soft tissue. 2: There is no definite fracture or dislocation, as visualized. There is no knee effusion. 3: There is no other bony abnormality. Dictated by: Dictated on workstation # [id number]
[2021-07-28] MEDS ORDERED: CEPHALEXIN 250 MG (KEFLEX) CAP PO ONE (22:00)
--- NOTE | 2021-07-28 22:02 | ED Lower Extremity ---
General Chief Complaint: Foreign Body Stated Complaint: SCREW IN R KNEE Nursing Triage Note: Patient states that he was working with wood screw with an impact gun. Patient had the impact gun resting on his right knee. The impact gun drove a wood screw into his skin on the right knee. Patient reports this happened approximately 10 minutes prior to arrival. Patient is unsure when his last tetnus shot was. Patient doesn't report any pain unless he tries to bend his knee. Source: patient Exam Limitations: no limitations History of Present Illness Date Seen by Provider: July 28, 2021 Time Seen by Provider: 21:30 Initial Comments Patient is a 26-year-old male who presents with concrete screw to his left prepatellar area. Patient was working with impact gun when he accidentally inserted screw into his knee. Injury occurred 10 minutes prior to need arrival. Tetanus status is out of date. Patient is cursing throughout exam and inappropriate with his provider. Onset: just prior to arrival Severity: mild Pain/Injury Location: left knee Method of Injury: other Modifying Factors: Improves With Other Allergies and Home Medications Allergies Coded Allergies: No Known Drug Allergies (Unverified , 09/21/18) Patient Home Medication List Home Medication List Reviewed: Yes Azithromycin (Azithromycin) 250 Mg Tablet, 250 MG PO UD Prescribed by: KELECHI KOWALSKI on 11/24/18 2303 Cephalexin (Cephalexin) 500 Mg Tablet, 500 MG PO TID Prescribed by: JACOB DAN on 09/21/18 1612 Review of Systems Constitutional: no symptoms reported Musculoskeletal: see HPI Past Ejkhexu-Hudgnj-Naleft Hx Patient Social History Tobacco Use?: Yes Tobacco type used: Cigarettes Smoking Status: Current Everyday Smoker Substance use?: No Alcohol Use?: No Pt feels they are or have been: No Immunizations Up To Date Tetanus Booster (TDap): Less than 5yrs Seasonal Allergies Seasonal Allergies: No Past Medical History Surgeries: Yes (Strabismus surgery) Eye Surgery, Tonsillectomy Respiratory: No Cardiac: No Neurological: No Genitourinary: No Gastrointestinal: No Musculoskeletal: No Endocrine: No HEENT: No Cancer: No Psychosocial: Yes Bipolar Integumentary: No Blood Disorders: No Physical Exam Vital Signs Vital Signs - First Documented 07/28/21 20:52 Temp 36.4 Pulse 100 Resp 16 B/P (MAP) 131/94 (106) Pulse Ox 99 O2 Delivery Room Air Capillary Refill : Less Than 3 Seconds Height, Weight, BMI Height: 5'11.00" Weight: 180lbs. 0oz. [id number]; 27.00 BMI Method:Stated General Appearance: no apparent distress Knees: left knee other (2 inch wood screw partially embedded into left prepatellar soft tissue. Does not appear to be fixed into the bone. Wound is dirty) Progress/Results/Core Measures Results/Orders My Orders Orders - RACHEL BHATIA DO Hydrocodone/Apap 5/325 Tablet (Lortab 5 (07/28/21 21:30) Dipht,Pertuss(Acell),Tet Adult (Boostrix (07/28/21 21:30) Knee 3 View Right (07/28/21 21:21) Lidocaine 1% Inj 50 Ml (Xylocaine 1% Inj (07/28/21 21:29) Lidocaine 1% Inj 50 Ml (Xylocaine 1% Inj (07/28/21 21:45) Cephalexin Capsule (Keflex Capsule) (07/28/21 22:00) Medications Given in ED Current Medications Medications Dose Ordered Sig/Aurora Route Start Time Stop Time Status Last Admin Dose Admin Lidocaine HCl 50 ml ONCE ONCE IJ 07/28/21 21:45 07/28/21 21:46 DC 07/28/21 21:40 50 ML Vital Signs/I&O 07/28/21 20:52 Temp 36.4 Pulse 100 Resp 16 B/P (MAP) 131/94 (106) Pulse Ox 99 O2 Delivery Room Air Blood Pressure Mean: 106 Departure Communication (Admissions) Foreign body removal procedure note: Verbal consent was obtained prior to removing screw from the patient. Patient numbed with 1% lidocaine over screw insertion site and removed intact with gentle traction. The wound was then irrigated cleansed and bandage was placed. Antibiotics were given and prescribed. Patient declined tetanus. Patient given prescription of antibiotics. Typical wound care instructions provided. Of note, the patient was disrespectful and cursing throughout exam and questioning judgment regarding successful procedure prior to the procedure, during the procedure and afterwards, despite all questions being answered to the patient's satisfaction prior to starting the procedure.. Impression Primary Impression: Foreign body of left knee Disposition: HOME, SELF-CARE Condition: Stable Departure-Patient Inst. Decision time for Depature: 22:02 Referrals: TOMAS JAMES MD (PCP) Primary Care Physician JACQUELYN TURNER APRN (Family) Primary Care Physician Patient Instructions: Foreign Body in Skin ED Add. Discharge Instructions: Please keep wound clean dry and covered and take antibiotics as directed. Follow-up with your PCP if you change your mind regarding tetanus shot. Return to the ED if new or worsening symptoms All discharge instructions reviewed with patient and/or family. Voiced understanding. Scripts Cephalexin (Cephalexin) 500 Mg Tablet 500 MG PO TID, #15 TAB Prov: RACHEL BHATIA DO 07/28/21 RACHEL BHATIA DO July 28, 2021 22:02
[2021-07-28] MEDS ORDERED: CEPH500T PO (22:03)
== END 2021-07-28 22:14 | disposition home or self-care (01) ==
LOC: EDUNIT# 20:49 → ER FS 20:51
DX: S81.041A Puncture wound with foreign body, right knee, initial encounter (principal); F17.210 Nicotine dependence, cigarettes, uncomplicated; Z23 Encounter for immunization; W29.8XXA Contact with other powered hand tools and household machinery, initial encounter; W45.8XXA Other foreign body or object entering through skin, initial encounter
CPT/HCPCS: 73562; 90715; 99281